=== PATIENT | male | born 1970 | race Two or more races ===

== ENCOUNTER → 2017-06-15 | Outpatient (CLI) | payer MEDICAID ==
[~2017-06-15] VITALS: Ht 175.3 cm; Wt 100.8 kg
[~2017-06-15] MED LIST: AMLO-511 PO; DOCU250C91 PO; ENAL10TA2 PO; FERR-89 PO; HYDR-309 PO; KETO10TA2 PO; SAXA1TBM3 PO
[2017-06-15 10:42] VITALS: BP 156/79
== END | disposition home or self-care (01) ==
LOC: HBOWC 10:09
PROVIDERS: ATTEND Nurse Practitioner Adult Health
DX: E11.621 Type 2 diabetes mellitus with foot ulcer (principal); L97.511 Non-pressure chronic ulcer of other part of right foot limited to breakdown of skin; I10 Essential (primary) hypertension
CPT/HCPCS: 87070; 87077; 87186; 87205; G0463

== ENCOUNTER → 2017-06-29 | Outpatient (CLI) | payer MEDICAID ==
[2017-06-29 08:20] VITALS: BP 157/82
== END | disposition home or self-care (01) ==
LOC: HBOWC 07:52
PROVIDERS: ATTEND Nurse Practitioner Adult Health
DX: E11.621 Type 2 diabetes mellitus with foot ulcer (principal); L97.511 Non-pressure chronic ulcer of other part of right foot limited to breakdown of skin; I10 Essential (primary) hypertension